=== PATIENT | female | born 1990 | race Caucasian/White ===

== ENCOUNTER 2018-02-10 03:56 | Day surgery (SDC) | payer OTHER ==
[2018-02-10 04:36] VITALS: BMI 25.0
[2018-02-10] MEDS: Lactated Ringer's 1,000 ML IV SCH ×2 (06:37→10:41)
[2018-02-10] MEDS ORDERED: Lactated Ringer's 1,000 ML IV SCH (06:45)
--- NOTE | 2018-02-10 07:12 | PDOC.LDHP ---
Labor and Delivery H&P Chief complaint: contractions (diarrhea) HPI: 27 y/o G1 at 35w0d, patient of Trang Foster, presents with sudden onset of abdominal cramping, nausea, and diarrhea. 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 Has had 2 episodes of diarrhea. Feels contractions but describes them as tightening and non-painful. ROS neg for HEENT, CV, pulm, GI, , neuro, psych, skin, musculoskeletal, or constitutional symptoms other than mentioned above.Denies VB, LOF, or decreased FM. OB History Details: First . Current complications: none Current medications: pre- vitamins Previous surgical history: none Allergies/Adverse Reactions: Allergies Allergy/AdvReac Type Severity Reaction Status Date / Time No Known Allergies Allergy Unverified 02/10/18 04:27 Social history: none - Physical Exam Vital signs reviewed and normal: yes General: NAD, resting Lungs: nonlabored breathing Abdomen: gravid Extremeties: no edema FHT: category 1 (110, mod variability, +accels, no decels) [place] contractions every: 3-4 mins - Vaginal Exam cm dilated: 1 (Repeat after 2 hours 2.5/50/1) Effacement: 50% Station: 1+ - Assessment Patient with small cervical change and continued contractions after 2L IV fluids. status reassuring. - Plan -: Will give celestone for prematurity and continue fluids. Continue to monitor.
[2018-02-10] MEDS ORDERED: Betamet Acet/Betamet Na Ph 30 MG/5 ML VIAL IM SCH (08:00)
[2018-02-10] MEDS ORDERED: Penicillin G Potassium 5 MILL.UNITS in Sodium Chloride 0.9% 100 ML IVPB SCH (11:15)
[2018-02-10] MEDS ORDERED: Penicillin G Potassium 5 MILL.UNITS VIAL ONE (12:00)
--- NOTE | 2018-02-10 19:35 | DIS ---
DATE OF ADMISSION: 02/10/2018 DATE OF DISCHARGE: 02/10/2018 CONDITION ON DISCHARGE: Stable. FINAL DIAGNOSES: 1. 35 weeks' gestation. 2. contractions. HISTORY OF PRESENT ILLNESS: The patient was seen by Dr. Bang for contractions. She was n oted to have contractions approximately every 4 minutes with a category 1 strip. She was making smal l cervical change from 1 cm to 2 cm. She started to feel the contractions. After 3 liters of lactat ed Ringer's, the contractions have spaced out to 7-10 minutes apart. They are no longer perceived by the patient. Category 1 strip 110 beats per minute baseline, moderate variability, positive acceler ations, no decelerations noted. The patient received one dose of Celestone, 1 dose of 5 million unit s penicillin G for antibiotic prophylaxis for labor. GBS swab was collected. Vital signs wi thin normal limits. Her last blood pressure was 113/57. Her pulse is 56. No labs were drawn. HOSPITAL COURSE: contractions and diarrhea. DISCHARGE MEDICATIONS: She will not be discharged home on any medications. She will have one follow up dose of 12.5 mg of Celestone IM tomorrow after 24 hours. DISCHARGE INSTRUCTIONS: Regular diet. Activity as tolerated. The patient is not to go to work this evening. She is discharged home in good condition. Followup appointment will be in 1 week with Claudia Foster at [facility].
== END 2018-02-10 15:31 | disposition home health service, planned readmission (86) ==
LOC: L&D/OP 03:56
PROVIDERS: ATTEND Advanced Practice Midwife
DX: O60.03 Preterm labor without delivery, third trimester (principal); Z3A.35 35 weeks gestation of pregnancy
CPT/HCPCS: 87081; 96360; 96361; 96366; 96372; 99284; J0702; J2540; J7050

== ENCOUNTER 2020-04-18 20:25 | Inpatient (IN) | payer OTHER ==
[2020-04-18] MEDS ORDERED: Misoprostol 200 MCG TAB PR PRN (20:42)
[2020-04-18] MEDS ORDERED: Promethazine HCl 25 MG/ML VIAL IM PRN (20:42)
[2020-04-18] MEDS ORDERED: Ondansetron PF 4 MG/2 ML Vial IVP PRN (20:42)
[2020-04-18] MEDS ORDERED: Acetaminophen 500 MG TAB PO PRN (20:42)
[2020-04-18] MEDS ORDERED: Methylergonovine 0.2 MG/ML VIAL IM PRN (20:42)
[2020-04-18] MEDS ORDERED: hydrALAZINE 20 MG/ML VIAL SLOW IVP PRN (20:42)
[2020-04-18] MEDS ORDERED: Lidocaine 1% (PF) 30 ML VIAL SC PRN (20:42)
[2020-04-18] MEDS ORDERED: Carboprost 250 MCG/ML AMP IM PRN (20:42)
[2020-04-18] MEDS ORDERED: Lactated Ringer's 1,000 ML IV SCH (20:45)
[2020-04-18] MEDS ORDERED: NS w/ Oxytocin 10 units 500 ML IV SCH (20:45)
[2020-04-18] MEDS ORDERED: Misoprostol 100 MCG TAB VAG SCH (20:45)
[2020-04-18 21:31] LABS: Hemoglobin 13.6 g/dL (12.0-16.0); Mean Corpuscular HGB CONC 34.6 g/dL (32.0-36.0); Mean Corpuscular Hemoglobin 31.2 pg (27.0-31.0); Mean Corpuscular Volume 90.3 fL (78.0-98.0); Mean Platelet Volume 9.4 fL (7.4-10.4); Platelet Count 189 thou/uL (130-400); RBC Distribution Width 11.7 % (11.5-14.5); Red Blood Cell (RBC) Count 4.36 mill/uL (4.20-5.40); White Blood Cell (WBC) Count 17.5 thou/uL (4.8-10.8)
[2020-04-18] MEDS: NS / Oxytocin 40 units/1000ml 1,000 ML IV PRN (21:43)
--- NOTE | 2020-04-18 22:36 | PDOC.LDHP ---
Labor and Delivery H&P Chief complaint: contractions HPI: Patient started having strong contractions at 1800. Affirms movement. Denies SROM or VB. Current gestational age (weeks): 39 Due date: 04/22/20 Grav: 2 Para: 1 OB History Details: CXS 2018 for breech 6.15 Current complications: none Abnormal US findings: No Current medications: pre- vitamins Previous surgical history: low tranverse CS Allergies/Adverse Reactions: Allergies Allergy/AdvReac Type Severity Reaction Status Date / Time No Known Allergies Allergy Unverified 09/14/19 10:20 Social history: none - Physical Exam Vital signs reviewed and normal: yes General: breathing through contractions Lungs: nonlabored breathing Abdomen: gravid Extremeties: no edema FHT: category 1 - Vaginal Exam cm dilated: 6 Effacement: 90% Station: 0 - OB Labs Blood type: O RH: positive Antibody Screen: negative HIV: negative RPR: negative HEPSAg: negative 1 hour GCT: negative GBS: negative Urine drug screen: negative Rubella: immune - Assessment L&D Assessment: term patient in labor TOLAC - Plan Plan: admit to L&D -: OB hospitalist notified
--- NOTE | 2020-04-18 22:51 | PDOC.OPDEL ---
OB Operative/Delivery Note Delivery Dr/Surgeon: Trang Foster Pre-Delivery Diagnosis: active labor Procedure/Post Delivery Dx: vaginal delivery after CS Weeks gestation: 39 - Findings A Sex: female Weight: 7 lb 6 oz - 1 min: 8 - 5 min: 9 - Additional Findings/Plan Placenta delivered: manual removal Repaired Obstetrical Laceration: 1st degree Estimated blood loss: 350 Post delivery plan: routine recovery
[2020-04-18 23:48] LABS: HBSAg Index 0.17 S/CO (0-0.99); Hep B Surf Ag Non-Reactive S/CO (NonReactive); Syphilis Antibody Nonreactive (Nonreactive); Syphilis Antibody Index 0.03 S/CO (<1.00 Non-Reactive)
[2020-04-19] MEDS: Ibuprofen 800 MG TAB PO PRN ×2 (00:07→07:45)
[2020-04-19] MEDS: NS / Oxytocin 40 units/1000ml 1,000 ML IV PRN (00:07)
[2020-04-19 00:44] VITALS: BMI 25.8
[2020-04-19] MEDS ORDERED: Benzocaine-Menthol 82.5 ML CAN TOP PRN (07:19)
[2020-04-19] MEDS ORDERED: Lanolin Ointment 7 GM TUBE TOP PRN (07:19)
[2020-04-19] MEDS ORDERED: Bisacodyl 10 MG SUPP PR PRN (07:19)
[2020-04-19] MEDS ORDERED: Milk Of Magnesia 30 ML UDCUP PO PRN (07:19)
[2020-04-19] MEDS ORDERED: HYDROcodone/Acetaminophen 5/325 mg Tablet PO PRN ×2 (07:19)
[2020-04-19] MEDS ORDERED: hydrALAZINE 20 MG/ML VIAL SLOW IVP PRN (07:19)
[2020-04-19] MEDS ORDERED: Adacel (T-DAP) 0.5 ML SYRINGE IM ONE (07:19)
[2020-04-19] MEDS ORDERED: NS / Oxytocin 40 units/1000ml 1,000 ML IV SCH (07:19)
[2020-04-19] MEDS ORDERED: Methylergonovine 0.2 MG/ML VIAL IM PRN (07:19)
[2020-04-19] MEDS: Docusate Calcium (SURFAK) 240 MG CAP PO SCH ×2 (07:45→21:20)
[2020-04-19] MEDS: Prenatal Vitamin 1 TAB PO SCH (07:45)
[2020-04-19] MEDS: Ferrous Sulfate 325 MG TAB PO SCH ×2 (07:45→18:21)
[2020-04-19 12:03] LABS: SARS-CoV-2 MS2 Positive; SARS-CoV-2 N Gene Negative; SARS-CoV-2 S Gene Negative; SARS-CoV-2 by NAA Not Detected (NotDetected); SARS-CoV-2 orf1ab Negative
[2020-04-19] MEDS: Ibuprofen 800 MG TAB PO SCH ×2 (15:44→21:20)
--- NOTE | 2020-04-19 18:53 | PDOC.PP ---
Post Progress Note Post Day #: 1 Subjective: doing well, but sore. is ok, better on right side. PO intake tolerated: yes Flatus: yes Ambulation: yes Vital Signs (12 hours) Temp Pulse Resp BP 04/19/20 15:45 98.4 F 62 20 106/51 L 04/19/20 12:18 98.6 F 69 20 108/65 04/19/20 07:39 97.9 F 59 L 16 104/57 L Weight Weight 160 lb - Physical Examination General: NAD Cardiovascular: RRR Respiratory: non-labored breathing Abdominal: no distention Extremities: negative homans (B) Skin: no rash Neurological: no gross focal deficits Psychiatric: A&Ox3, normal affect Result Diagrams: 04/18/20 21:21 Additional Labs: Post Labs Hep Bs Antigen Non-Reactive S/CO (NonReactive) 04/18/20 23:01 Blood Type O POSITIVE 04/18/20 21:21 (1) (vaginal after ) Code(s): O34.219 - MATERNAL CARE FOR UNSP TYPE SCAR FROM PREVIOUS DEL Status: Acute (2) 39 weeks gestation of Code(s): Z3A.39 - 39 WEEKS GESTATION OF Status: Acute - Assessment/Plan A: now P2 s/p at 39 weeks P: routine care Discharge home tomorrow.
[2020-04-20] MEDS: Ibuprofen 800 MG TAB PO SCH (05:00)
[2020-04-20 09:02] VITALS: BP 119/62; TEMP 98.7
[2020-04-20] MEDS: Prenatal Vitamin 1 TAB PO SCH (09:51)
[2020-04-20] MEDS: Docusate Calcium (SURFAK) 240 MG CAP PO SCH (09:51)
[2020-04-20] MEDS: Ferrous Sulfate 325 MG TAB PO SCH (09:55)
== END 2020-04-20 10:09 | disposition home or self-care (01) | DRG 807 ==
LOC: L&D/OP 20:25 → L&D 20:42 → 3SW 04-19 12:06
PROVIDERS: ADMIT Student in an Organized Health Care Education/Training Program; ATTEND Student in an Organized Health Care Education/Training Program
PROC: 10E0XZZ Delivery of Products of Conception, External Approach (ICD-10-PCS; principal; 2020-04-18)
PROC: 0HQ9XZZ Repair Perineum Skin, External Approach (ICD-10-PCS; 2020-04-18)
DX: O34.211 Maternal care for low transverse scar from previous cesarean delivery (principal); Z37.0 Single live birth; O70.0 First degree perineal laceration during delivery; Z3A.39 39 weeks gestation of pregnancy; Z20.828 Contact with and (suspected) exposure to other viral communicable diseases
CPT/HCPCS: 36415; 85027; 86780; 86850; 86900; 86901; 87340; 87635; 99285; J2001; U0003